=== PATIENT | male | born 1995 | race African-American/Black ===

== ENCOUNTER 2024-12-18 04:14 | Emergency (ER) | payer SELFPAY ==
[~2024-12-18] VITALS: Ht 190.5 cm; Wt 82.0 kg
[2024-12-18 04:16] VITALS: O2SAT 97
[2024-12-18] MEDS: TRANEXAMIC ACID 1,000MG/10ML TP ONE (04:45)
[2024-12-18] MEDS: LIDOCAINE HCL/EPINEPHRINE 1%-EPI 1:100,000 20ML VIAL INFIL ONE (04:45)
[2024-12-18] MEDS: TETANUS, DIPHTHERIA, PERTUSSIS VAC/PF 0.5ML (>10YR OLD) IM ONE (05:07)
[2024-12-18 05:33] VITALS: BP 130/72; PULSE 89; RESP 18; TEMP 36.8; O2SAT 98
[2024-12-18] MEDS ORDERED: CEPH500C2 MT (20:37)
== END 2024-12-18 05:45 | disposition home or self-care (01) ==
LOC: ER 05:45
DX: S61.411A Laceration without foreign body of right hand, initial encounter (principal); W26.0XXA Contact with knife, initial encounter; Y93.01 Activity, walking, marching and hiking; Y92.89 Other specified places as the place of occurrence of the external cause; Y99.8 Other external cause status
CPT/HCPCS: 99283; 90715; 12004; 90471; J2004